=== PATIENT | male | born 2000 | race American Indian/Alaskan Native ===

== ENCOUNTER 2020-08-10 01:14 | Emergency (ER) | payer OTHER ==
[2020-08-10 02:14] VITALS: BP 136/75
[2020-08-10] MEDS ORDERED: IBUPROFEN 600 MG TAB PO ONE (02:18)
[2020-08-10] MEDS ORDERED: ACETAMINOPHEN 500 MG TAB PO ONE (02:18)
--- NOTE | 2020-08-10 02:21 | Emergency Department Report ---
ED Upper Extremity Inj HPI - General Chief Complaint: Extremity Injury, Upper Stated Complaint: POSS BOXER FRACTURE Source: patient Mode of arrival: Ambulatory Limitations: No Limitations - History of Present Illness Initial Comments: Patient is a 20-year-old -Beninese male with no past medical history presents to the ED with complaint of acute onset persistent dorsal lateral right hand pain with swelling after his right hand was caught up on the car door 5 days ago. Patient states that the pain has been persistent and the swelling has also worsened in the last 2 days. Patient states that he is unable to perform any active range of motion with the right hand because of pain. Patient denies fall, nausea, vomiting, numbness and tingling or weakness of right hand, dizziness, syncope, neck pain, chest pain or shortness of breath. MD Complaint: Injury to:: right, hand (PAIN AND SWELLING) -: Sudden, days(s) (5) Other Extremity Injury: Hand: Right (Pain and swelling) Other Injuries: none Severity scale (0 -10): 5 Improves With: none Worsens With: movement of extremity Context: direct blow (car door closed onto his right hand) Associated Symptoms: denies other symptoms. denies: weakness, neck pain, suspects foreign body, nausea/vomiting, heard/felt popping sensat - Related Data Previous Rx's Medication Instructions Recorded Last Taken Type Ibuprofen [Motrin] 600 mg PO Q8H PRN #30 tablet 08/10/20 Unknown Rx traMADoL [Ultram] 50 mg PO Q6HR PRN #12 tablet 08/10/20 Unknown Rx Allergies Allergy/AdvReac Type Severity Reaction Status Date / Time No Known Allergies Allergy Unverified 08/10/20 02:16 ED Review of Systems ROS: Stated complaint: POSS BOXER FRACTURE Other details as noted in HPI Constitutional: denies: chills, fever Eyes: denies: eye pain, eye discharge, vision change ENT: denies: ear pain, throat pain Respiratory: denies: cough, shortness of breath, wheezing Cardiovascular: denies: chest pain, palpitations Endocrine: no symptoms reported Gastrointestinal: denies: abdominal pain, nausea, diarrhea Genitourinary: denies: urgency, dysuria Musculoskeletal: arthralgia (right hand pain and swelling). denies: back pain, joint swelling Skin: denies: rash, lesions Neurological: denies: headache, weakness, paresthesias Psychiatric: denies: anxiety, depression Hematological/Lymphatic: denies: easy bleeding, easy bruising ED Past Medical Hx - Past Medical History Previous Medical History?: No - Surgical History Past Surgical History?: No - Social History Smoking Status: Never Smoker Substance Use Type: None - Medications Home Medications: Home Medications Medication Instructions Recorded Confirmed Last Taken Type Ibuprofen [Motrin] 600 mg PO Q8H PRN #30 tablet 08/10/20 Unknown Rx traMADoL [Ultram] 50 mg PO Q6HR PRN #12 tablet 08/10/20 Unknown Rx ED Physical Exam - General Limitations: No Limitations General appearance: alert, in no apparent distress - Head Head exam: Present: atraumatic, normocephalic, normal inspection - Eye Eye exam: Present: normal appearance, PERRL, EOMI Pupils: Present: normal accommodation - ENT ENT exam: Present: normal exam, normal orophraynx, mucous membranes moist, TM's normal bilaterally, normal external ear exam - Neck Neck exam: Present: normal inspection, full ROM - Respiratory Respiratory exam: Present: normal lung sounds bilaterally. Absent: respiratory distress, wheezes, rales, stridor, chest wall tenderness, accessory muscle use, decreased breath sounds, prolonged expiratory - Cardiovascular Cardiovascular Exam: Present: regular rate, normal rhythm, normal heart sounds. Absent: systolic murmur, diastolic murmur, rubs, gallop - GI/Abdominal GI/Abdominal exam: Present: soft, normal bowel sounds. Absent: tenderness, guarding, rebound, hyperactive bowel sounds, hypoactive bowel sounds - Extremities Exam Extremities exam: Present: normal inspection, full ROM, tenderness (Palpable dorsal right hand pain with mild swelling), normal capillary refill, joint swelling (latera dorsal right hand swelling with tenderness). Absent: calf tenderness - Back Exam Back exam: Present: normal inspection, full ROM. Absent: tenderness, CVA tenderness (R), CVA tenderness (L), muscle spasm, paraspinal tenderness, paolo tebral tenderness - Neurological Exam Neurological exam: Present: alert, oriented X3, CN II-XII intact, normal gait, reflexes normal - Psychiatric Psychiatric exam: Present: normal affect, normal mood - Skin Skin exam: Present: warm, dry, intact, normal color. Absent: rash ED Course Vital Signs 08/10/20 02:11 Temperature 98.7 F Pulse Rate 77 Respiratory 18 Rate Blood Pressure 136/75 O2 Sat by Pulse 100 Oximetry ED Medical Decision Making - Radiology Data Radiology results: report reviewed, image reviewed Findings [facility] [address] [place] [address] XRay Report Signed Patient: ESTEFANI DÍAZ MR#: [id number] : 2000 Acct:[id number] Age/Sex: 20 / M ADM Date: 08/10/20 Loc: ED Attending Dr: Ordering Physician: LOUISE MCCORMICK III, MD Date of Service: 08/10/20 Procedure(s): XR hand 3+V RT Accession Number(s): [id number] cc: LOUISE MCCORMICK III, MD Fluoro Time In Minutes: XR hand 3+V RT INDICATION / CLINICAL INFORMATION: right hand pain. COMPARISON: None available. FINDINGS: There is an acute fracture at the base of the fifth metacarpal with one quarter shaft width dorsal displacement of the distal metacarpal shaft. No joint subluxation or dislocation. No additional fracture. Adjacent soft tissue swelling is present. IMPRESSION: Acute right fifth metacarpal base fracture. Signer Name: Letty Santa MD Signed: 08/10/2020 2:39 AM Workstation Name: [id number] Transcribed By: JS Dictated By: LETTY SANTA MD Electronically Authenticated By: LETTY SANTA MD Signed Date/Time: 08/10/20238 DD/ 7 TD/TT: - Medical Decision Making This is a 20-year-old -Beninese male with no past medical history presents to the ED with complaint of acute onset persistent dorsal lateral right hand pain with swelling after his right hand was caught up on the car door 5 days ago. Patient states that the pain has been persistent and the swelling has also worsened in the last 2 days. Patient states that he is unable to perform any active range of motion with the right hand because of pain. In the ED, patient is alert and oriented x3 and is not in distress. Patient was treated for pain in the ED and right hand x-ray shows an acute fracture at the base of the fifth metacarpal with one quarter shaft width dorsal displacement of the distal metacarpal shaft. No joint subluxation or dislocation. No additional fracture. Adjacent soft tissue swelling is present. On reevaluation, patient's pain is well controlled medication. Patient right hand was splinted with ulnar gutter splint and the patient was discharged home on pain medications and given a referral to the orthopedic surgeon on-call at [facility] for follow-up. Patient was advised to contact Dr. Weber's office first thing today in the morning to schedule a follow-up appointment or return to the ED immediately if symptoms get worse. - Differential Diagnosis Hand fracture; hand contusion; hand sprain; muscle strain Critical care attestation.: If time is entered above; I have spent that time in minutes in the direct care of this critically ill patient, excluding procedure time. ED Disposition Clinical Impression: Contusion of right hand, initial encounter Displaced fracture of base of fifth metacarpal bone of right hand Qualifiers: Encounter type: initial encounter Fracture type: closed Qualified Code(s): S62.316A - Displaced fracture of base of fifth metacarpal bone, right hand, initial encounter for closed fracture Disposition: TO HOME OR SELFCARE Is pt being admited?: No Does the pt Need Aspirin: No Condition: Stable Instructions: Cast or Splint Care, Adult, [id number], Hand Contusion, [id number], Boxer's Fracture Additional Instructions: The right hand x-ray shows a displaced fracture at the base of your right fifth metacarpal. Therefore take medication with food, drink plenty of fluids and follow-up with the orthopedic surgeon on-call Dr. Weber for follow-up. Contact Dr. Weber's office today in the morning to schedule a follow-up appointment. Prescriptions: Ibuprofen [Motrin] 600 mg PO Q8H PRN #30 tablet PRN Reason: Pain traMADoL [Ultram] 50 mg PO Q6HR PRN #12 tablet PRN Reason: Pain Referrals: GERMÁN WEBER MD [Staff Physician] - [facility] Time of Disposition: 02:21 Print Language: KINYARWANDA
--- NOTE | 2020-08-10 02:44 | XRay Report ---
XR hand 3+V RT INDICATION / CLINICAL INFORMATION: right hand pain. COMPARISON: None available. FINDINGS: There is an acute fracture at the base of the fifth metacarpal with one quarter shaft width dorsal di splacement of the distal metacarpal shaft. No joint subluxation or dislocation. No additional fractur e. Adjacent soft tissue swelling is present. IMPRESSION: Acute right fifth metacarpal base fracture. Signer Name: Parvez Santa MD Signed: 08/10/2020 2:39 AM Workstation Name: [id number]
== END 2020-08-10 04:26 | disposition home or self-care (01) ==
LOC: ED 01:14
DX: S62.316A Displaced fracture of base of fifth metacarpal bone, right hand, initial encounter for closed fracture (principal); Z79.1 Long term (current) use of non-steroidal anti-inflammatories (NSAID); Z79.899 Other long term (current) drug therapy; X58.XXXA Exposure to other specified factors, initial encounter; Y93.89 Activity, other specified; Y92.89 Other specified places as the place of occurrence of the external cause; Y99.8 Other external cause status

== ENCOUNTER 2020-09-10 08:21 | Outpatient (CLI) | payer BC ==
--- NOTE | 2020-09-10 09:21 | XRay Report ---
RIGHT HAND 3 VIEWS INDICATION: FRACTURE OF UNSPECIFIED PHALANX OF RIGHT LITTLE FINGER. COMPARISON: No relevant prior imaging study available. FINDINGS: There is a transverse oblique fracture at the base of the little finger metacarpal. No intra-articula r extension is identified. There is adjacent soft tissue swelling. No additional fractures are identi fied. IMPRESSION: 1. Minimally displaced little finger metacarpal fracture at the base. Signer Name: Toñito Hung MD Signed: 09/10/2020 9:15 AM Workstation Name: [id number]
== END 2020-09-10 08:22 | disposition home or self-care (01) ==
LOC: XRAY 08:21
PROVIDERS: ATTEND Orthopaedic Surgery
DX: S62.606A Fracture of unspecified phalanx of right little finger, initial encounter for closed fracture (principal); X58.XXXA Exposure to other specified factors, initial encounter; Y93.89 Activity, other specified; Y92.89 Other specified places as the place of occurrence of the external cause; Y99.8 Other external cause status